=== PATIENT | female | born 1970 | race Caucasian/White ===

== ENCOUNTER 2017-02-01 17:39 | Emergency (ER) | payer BC ==
--- NOTE | 2017-02-01 18:50 | Emergency Department Record ---
History of Present Illness - General Chief Complaint: Headache Migraine Stated Complaint: MIGRAINE Time Seen by Provider: 02/01/17 18:38 Source: Patient Mode of Arrival: Ambulatory Limitations: No limitations - History of Present Illness Initial Comments: 47 yo female presents to ED for evaluation of a "migraine-type headache" that began this morning. Patient reports taking Tylenol at 14:30 this afternoon, but reports that she vomited up the medication shortly after. Patient denies fevers, neck stiffness, or anticoagulation medication use, denies any recent head trauma. Patient does report recent treatment for bronchitis which is improving. MD Complaint: Headache Onset/Timin -: Hour(s) Onset Description: Gradual Location: Occipital, Other Severity: Severe Severity scale (1-10): 8 Quality: Aching, Different than previous headaches Consistency: Constant Improves With: Nothing Worsens With: Light, Movement of head/neck, Noise Context: Occured at rest Associated Symptoms: Nausea, Vomiting Treatments Prior to Arrival: None - Related Data Home Medications Medication Instructions Recorded Confirmed Last Taken Atorvastatin Calcium [Atorvastatin 20 mg PO DAILY 02/01/17 02/01/17 Unknown Calcium] Allergies Allergy/AdvReac Type Severity Reaction Status Date / Time No Known Drug Allergies Allergy Verified 01/03/15 07:17 Travel Screening - Travel/Exposure Within Last 30 Days Have you traveled within the last 30 days?: No Review of Systems Constitutional: Denies: Chills, Fever, Malaise, Night sweats Eyes: Denies: Eye discharge, Eye pain ENT: Denies: Congestion, Ear pain, Epistaxis Respiratory: Reports: Cough (recent bronchitis). Denies: Dyspnea Cardiovascular: Denies: Chest pain, Dyspnea on exertion Endocrine: Denies: Fatigue, Heat or cold intolerance Gastrointestinal: Reports: Nausea, Vomiting. Denies: Abdominal pain, Constipation Genitourinary: Denies: Incontinence, Retention Musculoskeletal: Denies: Arthralgia, Back pain, Gout, Joint swelling Skin: Denies: Bruising, Change in color Neurological: Reports: Headache. Denies: Abnormal gait, Confusion, Numbness, Tingling Psychiatric: Denies: Anxiety Hematological/Lymphatic: Denies: Anemia, Blood Clots Past Medical History - SOCIAL HISTORY Smoking Status: Never smoker Alcohol Use: None Drug Use: None - RESPIRATORY Hx Respiratory Disorders: No - CARDIOVASCULAR Hx Cardio Disorders: No - NEURO Hx Neuro Disorders: Yes Hx Headaches: Yes - GI Hx GI Disorders: No - Hx Genitourinary Disorders: No - ENDOCRINE Hx Endocrine Disorders: No - MUSCULOSKELETAL Hx Musculoskeletal Disorders: No - PSYCH Hx Psych Problems: No - HEMATOLOGY/ONCOLOGY Hx Hematology/Oncology Disorders: No Family Medical History Any Significant Family History?: Yes Hx Cancer: Grandparents Hx Dementia: Grandparents Hx Diabetes: Mother, Grandparents Hx HTN: Father Physical Exam - General General Appearance: Alert, Oriented x3, Cooperative Limitations: No limitations - Head Head exam: Atraumatic, Normocephalic, Normal inspection Head exam detail: negative: Abrasion, Contusion, Barakat's sign, General tenderness, Hematoma, Laceration - Eye Eye exam: Normal appearance. negative: Conjunctival injection, Periorbital swelling, Periorbital tenderness, Scleral icterus - ENT Ear exam: negative: Auricular hematoma, Auricular trauma Nasal Exam: negative: Active bleeding, Discharge, Dried blood, Foreign body Mouth exam: negative: Drooling, Laceration, Muffled voice, Tongue elevation - Neck Neck exam: Normal inspection. negative: Meningismus, Tenderness - Respiratory Respiratory exam: Normal lung sounds bilaterally. negative: Respiratory distress, Rhonchi, Stridor, Wheezes - Cardiovascular Cardiovascular Exam: Regular rate, Normal rhythm, Normal heart sounds - GI/Abdominal GI/Abdominal exam: Soft. negative: Distended, Rebound, Rigid, Tenderness - Rectal Rectal exam: Deferred - exam: Deferred - Extremities Extremities exam: Normal inspection. negative: Calf tenderness, Pedal edema, Tenderness - Back Back exam: Denies: CVA tenderness (R), CVA tenderness (L) - Neurological Neurological exam: Alert, Normal gait, Oriented X3 - Psychiatric Psychiatric exam: Normal affect, Normal mood - Skin Skin exam: Normal color. negative: Abrasion Type of lesion: negative: abrasion Course Vital Signs 02/01/17 18:21 Temperature 97.7 F Pulse Rate 68 Respiratory 18 Rate Blood Pressure 154/82 Pulse Ox 97 - Reevaluation(s) Reevaluation #1: 02/01/17 18:49 Patient was seen and examined, no significant risk factors elicited that are suggestive of SAH/intracranial bleeding or meningitis. Will treat symptomatically and re-evaluate. Reevaluation #2: 02/01/17 20:14 Patient reassessed and reports that her headache symptoms are down to 1-2/10 from . Patient appears stable for discharge at this time. Disposition Disposition: Discharge Clinical Impression: Acute headache Qualifiers: Headache type: unspecified Intractability: not intractable Qualified Code(s): R51 - Headache Disposition: Home, Self-Care Instructions: Acute Headache (ED) Additional Instructions: Return to ED if your symptoms worsen or if you have any concerns. Follow-up with your family doctor in 3-5 days as directed. Forms: Patient Portal Access Time of Disposition: 18:49 Quality - Quality Measures Quality Measures: N/A - Blood Pressure Screening Does Patient Have Any of the Following: Active Dx of HTN Blood Pressure Classification: Pre-Hypertensive BP Reading Systolic Measurement: 154 Diastolic Measurement: 82 Screening for High Blood Pressure: Patient Exclusion, Hx of HTN [G9744]
[2017-02-01] MEDS: 0.9 % SODIUM CHLORIDE 1000ML 1,000 ML IV SCH (19:01)
[2017-02-01] MEDS: DIPHENHYDRAMINE HCL IV 50 MG/ML VIAL IVP ONE (19:01)
[2017-02-01] MEDS: METOCLOPRAMIDE HCL 10 MG/2 ML VIAL IVP ONE (19:02)
[2017-02-01] MEDS: KETOROLAC 30 MG/ML VIAL IVP ONE (19:02)
== END 2017-02-01 20:24 | disposition home or self-care (01) ==
LOC: ER 17:39
DX: R51 Headache (principal); R11.2 Nausea with vomiting, unspecified
CPT/HCPCS: 99284 ×2; 96374; 96375; 96361; J1885; J1200; J2765; J7030

== ENCOUNTER 2019-02-25 16:39 | Emergency (ER) | payer BC ==
[2019-02-25] MEDS ORDERED: METOCLOPRAMIDE HCL 10 MG/2 ML VIAL IVP ONE (16:52)
[2019-02-25] MEDS ORDERED: KETOROLAC 30 MG/ML VIAL IVP ONE (16:52)
[2019-02-25] MEDS ORDERED: DIPHENHYDRAMINE HCL 50 MG/ML VIAL IVP ONE (16:53)
--- NOTE | 2019-02-25 16:58 | Emergency Department Record ---
History of Present Illness - General Chief Complaint: Headache Migraine Stated Complaint: MIGRAINE Time Seen by Provider: 02/25/19 16:41 Source: Patient Mode of Arrival: Ambulatory Limitations: No limitations - History of Present Illness Initial Comments: The patient is here due to developing a frontal ALVARENGA just over 2 hours ago. She states she was leaving work and began to have a frontal ALVARENGA so she did take an OTC pain medicine. Over the next hour the ALVARENGA gradually worsened. She does have mild photophobia and nausea but no vomiting, fever, neck pain, weakness, thunderclap ALVARENGA or balance issues. The patient has had similar ALVARENGA's in the past and was last here in the ER 2 years ago for a similar issue. She has had mild congestion for the last week also but that is improving. The patient also denies any new medicines and had no hx of anticoagulant use. Complaint: Headache Onset/Timin -: Hour(s) Onset Description: Gradual Severity: Moderate Severity scale (1-10): 8 Quality: Aching, Similar to previous headaches Consistency: Constant Improves With: Nothing - Related Data Home Medications Medication Instructions Recorded Confirmed Last Taken Fexofenadine HCl [Sayda Allergy] 180 mg PO DAILY 02/25/19 02/25/19 1 Day Ago ~02/24/19 Allergies Allergy/AdvReac Type Severity Reaction Status Date / Time No Known Drug Allergies Allergy Verified 02/25/19 16:46 Travel Screening - Travel/Exposure Within Last 30 Days Have you traveled within the last 30 days?: No - Travel/Exposure Within Last Year Have you traveled outside the [place] in the last year?: No - Additonal Travel Details Have you been exposed to anyone with a communicable illness?: No - Travel Symptoms Symptom Screening: None Review of Systems Constitutional: Denies: Chills, Fever Eyes: Denies: Eye discharge ENT: Denies: Congestion Respiratory: Denies: Cough, Dyspnea Past Medical History - SOCIAL HISTORY Smoking Status: Never smoker Alcohol Use: None, Occasional Drug Use: None - RESPIRATORY Hx Respiratory Disorders: No - CARDIOVASCULAR Hx Cardio Disorders: No - NEURO Hx Neuro Disorders: Yes Hx Headaches: Yes - GI Hx GI Disorders: No - Hx Genitourinary Disorders: No - ENDOCRINE Hx Endocrine Disorders: No - MUSCULOSKELETAL Hx Musculoskeletal Disorders: No - PSYCH Hx Psych Problems: No - HEMATOLOGY/ONCOLOGY Hx Hematology/Oncology Disorders: No Family Medical History Any Significant Family History?: Yes Hx Cancer: Grandparents Hx Dementia: Grandparents Hx Diabetes: Mother, Grandparents Hx HTN: Father Physical Exam - General General Appearance: Alert, Oriented x3, Cooperative, No acute distress - Head Head exam: Atraumatic, Normocephalic, Normal inspection, Other (Palpation of the bitemporal areas does reproduce the patient's pain.) - Eye Eye exam: Normal appearance, PERRL - ENT Throat exam: Normal inspection. negative: Tonsillar erythema, Tonsillar exudate - Neck Neck exam: Normal inspection, Full ROM. negative: Lymphadenopathy, Meningismus (The neck is very supple.), Tenderness - Respiratory Respiratory exam: Normal lung sounds bilaterally. negative: Respiratory distress - Cardiovascular Cardiovascular Exam: Regular rate, Normal rhythm, Normal heart sounds - GI/Abdominal GI/Abdominal exam: Soft, Normal bowel sounds. negative: Tenderness - Extremities Extremities exam: Normal inspection, Full ROM, Normal capillary refill. negative: Tenderness - Neurological Neurological exam: Alert, Normal gait, Oriented X3, Other (Neg Drift and Rhomberg.). negative: Abnormal gait, Altered, Motor sensory deficit - Psychiatric Psychiatric exam: negative: Anxious - Skin Skin exam: negative: Rash Course Vital Signs 02/25/19 16:41 Temperature 97.5 F L Pulse Rate 66 Respiratory 18 Rate Blood Pressure 164/91 Pulse Ox 97 - Reevaluation(s) Reevaluation #1: The patient is doing much better at this time and is resting comfortably. 02/25/19 17:23 Reevaluation #2: The patient is doing a lot better at this time and her ALVARENGA is completely gone. She is up walking with no difficulty or pain and is ready for home. 02/25/19 17:47 Disposition Disposition: Discharge Clinical Impression: Migraine Qualifiers: Migraine type: unspecified Status migrainosus presence: without status migrainosus Intractability: not intractable Qualified Code(s): G43.909 - Migraine, unspecified, not intractable, without status migrainosus Disposition: Home, Self-Care Condition: (2) Stable Instructions: Migraine Headache (ED) Additional Instructions: Please use Tylenol or Motrin for pain and please see your family doctor next week for recheck. Return to the ER for any worsening pain, fever, neck pain, vomiting, or confusion. Forms: Patient Portal Access Time of Disposition: 17:48 Quality - Quality Measures Quality Measures: Headache (All Ages) - Headache: Neuroimaging Quality Measure: Measure #419: Overuse of Neuroimaging ICD10 Codes Entered: Yes View Detail: Yes Neurological Exam: Patient had a normal neurological exam. [G9535] Headache: Use of Neuroimaging: < CTA, CT, MRA or MRI was NOT ordered > [G9534] - Blood Pressure Screening View Details: Yes Does Patient Have Any of the Following: No Blood Pressure Classification: Hypertensive Reading Systolic Measurement: 164 Diastolic Measurement: 91 Screening for High Blood Pressure: < First Hypertensive BP, F/U Documented > [G8950] First Hypertensive Follow-up Interventions: Referral to alternative/primary care provider.
== END 2019-02-25 17:57 | disposition home or self-care (01) ==
LOC: ER 16:39
DX: G43.909 Migraine, unspecified, not intractable, without status migrainosus (principal); R11.0 Nausea; H53.149 Visual discomfort, unspecified
CPT/HCPCS: 99284 ×2; 96374; 96375; J1885; J1200; J2765

== ENCOUNTER 2019-07-03 09:00 | Day surgery (SDC) | payer BC ==
[2019-07-03] MEDS ORDERED: LIDOCAINE 2% MDV (20MG/ML) 20ML VIAL IV ONE (09:01)
[2019-07-03] MEDS ORDERED: PROPOFOL 10 MG/ML VIAL IV ONE (09:01)
--- NOTE | 2019-07-04 06:01 | Operative Note ---
OPERATION: COLONOSCOPY to the cecum with cold snare polypectomy x1. INDICATION: Colorectal cancer screening in this patient with high risk due to a family history of colon cancer (father). This is the patient's first examination. ANESTHESIA: Intravenous sedation was administered by the department of anesthesiology and included Diprivan titrated to effect. PROCEDURE: Following informed consent from this alert individual including a discussion of the risks and benefits of the procedure and an opportunity for the patient to ask questions, the patient was in the left lateral decubitus position. A digital rectal examination was performed. No abnormalities were noted. Following this, the Olympus [id number] video colonoscope was inserted into the rectum without resistance. The rectal mucosa had a normal appearance with normal folds and distensibility. A few scattered diverticula were seen. The colonoscope was advanced up to the level of the cecum without difficulty. Throughout the bowel, initially the mucosa appeared normal, the folds were normal, and the bowel was fairly well distensible. The colon preparation was good. The cecum was defined by noting the appendiceal orifice and ileocecal valve. From the base of the cecum, the colonoscope was slowly withdrawn. No changes were noted until the sigmoid colon was reached where again diverticulosis was noted. Also noted was an inflammatory-appearing polyp measuring 6-7 mm in size. The polyp was removed in total with cold snare polypectomy and suctioned through the colonoscope into a collection trap. The instrument was then withdrawn back into the rectum. Retroflexion accomplished following air insufflation failed to demonstrate any changes. The endoscope was straightened and removed. The patient tolerated the procedure well and was returned to the recovery area in stable condition. IMPRESSION: 1. A 6-7 mm sigmoid colon polyp which appeared inflammatory, removed with cold snare polypectomy. 2. Sigmoid diverticulosis. RECOMMENDATIONS: Further recommendations will be forthcoming pending results of pathology obtained today. The patient will follow up with Dr. Bullard as well. As always, thank you for allowing me to participate in the care of your patient. YANETH
== END 2019-07-03 11:16 | disposition home or self-care (01) ==
LOC: HOP 09:00
PROVIDERS: ATTEND Internal Medicine Gastroenterology
DX: Z12.11 Encounter for screening for malignant neoplasm of colon (principal); K63.5 Polyp of colon; K57.30 Diverticulosis of large intestine without perforation or abscess without bleeding; Z80.0 Family history of malignant neoplasm of digestive organs; E78.00 Pure hypercholesterolemia, unspecified